=== PATIENT | male | born 1985 | race Caucasian/White ===

== ENCOUNTER 2017-07-11 16:17 | Emergency (ER) | payer BC, OTHER ==
--- NOTE | 2017-07-11 16:22 | PDOC ---
Rapid Medical Evaluation Chief Complaint: Back Pain Time Seen by Provider: 07/11/17 16:20 Medical Evaluation: 07/11/17 16:20 Healthy 32 year old male with sudden lower back pain after bending down this morning. No LE weakness/numbness, no bladder or bowel incontinence. No relief from Advil 1pm. -To FT for further evaluation
[2017-07-11 16:24] VITALS: BP 120/84; PULSE 78; TEMP 98; BMI 28.1
[2017-07-11] MEDS ORDERED: KETOROLAC TROMETHAMINE 60 MG/2 ML VIAL IM ONE (17:20)
--- NOTE | 2017-07-11 17:20 | PDOC ---
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 Woke up this morning with acute onset of exquisite low back pain. States his mid to lower waistline, some radiation through both buttocks. Denies numbness or tingling to feet. No problems with bowel or bladder. Took some Advil, and use some BenGay for some minimal resolved. No history of back injury or disc herniation. 07/11/17 17:25 Occurred: reports: this morning Severity: reports: moderate Pain Location: reports: back Method of Injury: Yes: unknown Modifying Factors: improves with: None Associated Symptoms (Fall): denies symptoms Past History - Travel Traveled outside of the country in the last 30 days: No Close contact w/someone who was outside of country & ill: No - Past Medical History Allergies/Adverse Reactions: Allergies Allergy/AdvReac Type Severity Reaction Status Date / Time No Known Allergies Allergy Verified 07/11/17 16:24 Home Medications: Ambulatory Orders Cyclobenzaprine HCl 10 mg PO Q8H PRN #14 tablet 07/11/17 COPD: No - Suicide/Smoking/Psychosocial Hx Smoking History: Never smoked Information on smoking cessation initiated: No Hx Alcohol Use: No Drug/Substance Use Hx: No Substance Use Type: None Review of Systems - Review of Systems Able to Perform ROS?: Yes Is the patient limited Luxembourger proficient: Yes Constitutional: Yes: Symptoms Reported, See HPI HEENTM: No: Symptoms Reported Respiratory: No: Symptoms reported ABD/GI: No: Symptoms Reported Musculoskeletal: Yes: Symptoms Reported, See HPI, Back Pain, Muscle Pain Integumentary: No: Symptoms Reported All Other Systems: Reviewed and Negative *Physical Exam - Vital Signs Last Vital Signs Temp Pulse Resp BP Pulse Ox 98 F 78 17 120/84 99 07/11/17 16:21 07/11/17 16:21 07/11/17 16:21 07/11/17 16:21 07/11/17 16:21 - Physical Exam General Appearance: Yes: Nourished, Appropriately Dressed, Apparent Distress, Moderate Distress HEENT: positive: BRIE, Normal ENT Inspection, TMs Normal, Pharynx Normal Neck: positive: Supple. negative: Tender Respiratory/Chest: positive: Lungs Clear, Normal Breath Sounds Gastrointestinal/Abdominal: positive: Soft. negative: Tender Musculoskeletal: positive: Normal Inspection, Decreased Range of Motion, Muscle Spasm (spasm detected at paravertebral spinous muscles bilaterally worse on the right than the left at approximately L1-3. Able to bend only to approximately 20 and has difficulty of resuming standing position due to the spasm. Vascular intact to feet). 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 07/11/17 20:43 patient much improved after Percocet tablets, able to sit transfer self to wheelchair and to home. We will continue regime of cyclobenzaprine and NSAIDs. *DC/Admit/Observation/Transfer Diagnosis at time of Disposition: Low back strain Qualifiers: Encounter type: initial encounter Qualified Code(s): S39.012A - Strain of muscle, fascia and tendon of lower back, initial encounter - Discharge Dispostion Disposition: HOME Condition at time of disposition: Stable Admit: No - Prescriptions Prescriptions: Cyclobenzaprine HCl 10 mg PO Q8H PRN #14 tablet PRN Reason: spasm - Referrals Referrals: Wilman Fulton [Primary Care Provider] - - Patient Instructions Printed Discharge Instructions: DI for Back Strain or Sprain Additional Instructions: Rest, no heavy lifting or exercise until pain is resolved Hot soaks to neck and low back as often as possible/hot showers or Jacuzzis No massage or therapy until spasm is gone Continue ibuprofen 2-200 mg tablets every 6 hours for the next 3 days then as needed for pain and swelling Cyclobenzaprine 1-10mg every 8 hours as needed for spasm If not significant improvement within 24 hours with medication and rest regime, followup with private physician for change in medications and /or therapy. - Post Discharge Activity Forms/Work/School Notes: Back to Work
[2017-07-11] MEDS ORDERED: KETOROLAC TROMETHAMINE 60 MG/2 ML VIAL ONE (17:21)
== END 2017-07-11 18:40 | disposition home or self-care (01) ==
LOC: JERFT 16:17
PROC: 3E0233Z Introduction of Anti-inflammatory into Muscle, Percutaneous Approach (ICD-10-PCS; principal; 2017-07-11)
DX: S39.012A Strain of muscle, fascia and tendon of lower back, initial encounter (principal); X50.0XXA Overexertion from strenuous movement or load, initial encounter; Y93.89 Activity, other specified; Y92.512 Supermarket, store or market as the place of occurrence of the external cause; Y99.0 Civilian activity done for income or pay
CPT/HCPCS: 99281-25

== ENCOUNTER 2018-12-27 10:03 | Emergency (ER) | payer BC, OTHER ==
[2018-12-27 10:10] VITALS: BP 125/71; PULSE 87; TEMP 98.6; BMI 28.1
[2018-12-27] MEDS ORDERED: ACETAMINOPHEN 1000 MG/100 ML VIAL (NON FORMULARY) IVPB ONE (11:09)
[2018-12-27] MEDS ORDERED: SODIUM CHLORIDE 1,000 ML IV STA (11:09)
--- NOTE | 2018-12-27 11:09 | PDOC ---
History of Present Illness - General Chief Complaint: Shortness of Breath Stated Complaint: HEADACHE/DIFF BREATHING Time Seen by Provider: 12/27/18 10:55 History Source: Patient Exam Limitations: No Limitations Past History - Travel Traveled outside of the country in the last 30 days: No Close contact w/someone who was outside of country & ill: No - Past Medical History Allergies/Adverse Reactions: Allergies Allergy/AdvReac Type Severity Reaction Status Date / Time No Known Allergies Allergy Verified 12/27/18 10:10 Home Medications: Ambulatory Orders Cyclobenzaprine HCl 10 mg PO Q8H PRN #14 tablet 07/11/17 COPD: No - Suicide/Smoking/Psychosocial Hx Smoking History: Never smoked Hx Alcohol Use: No Drug/Substance Use Hx: No Substance Use Type: None Review of Systems - Review of Systems Able to Perform ROS?: Yes Comments:: 12/27/18 15:47 CONSTITUTIONAL: Present: generalized weakness Absent: fever, chills, diaphoresis, malaise, loss of appetite HEENT: Absent: rhinorrhea, nasal congestion, throat pain, throat swelling, difficulty swallowing, mouth swelling, ear pain, eye pain, visual Changes CARDIOVASCULAR: Absent: chest pain, loss of consciousness, palpitations, irregular heart rate, peripheral edema RESPIRATORY: Present: shortness of breath, cough Absent: dyspnea with exertion, orthopnea, wheezing, stridor, hemoptysis GASTROINTESTINAL: Absent: abdominal pain, abdominal distension, nausea, vomiting, diarrhea, constipation, melena, hematochezia GENITOURINARY: Absent: dysuria, frequency, urgency, hesitancy, hematuria, flank pain, genital pain MUSCULOSKELETAL: Absent: myalgia, arthralgia, joint swelling SKIN: Absent: rash, itching, pallor HEMATOLOGIC/IMMUNOLOGIC: Absent: easy bleeding, easy bruising, lymphadenopathy, frequent infections ENDOCRINE: Absent: unexplained weight gain, unexplained weight loss, heat intolerance, cold intolerance NEUROLOGIC: Present: headache Absent: focal weakness or paresthesias, dizziness, unsteady gait, seizure, mental status changes, bladder or bowel incontinence PSYCHIATRIC: Absent: anxiety, depression, suicidal or homicidal ideation, hallucinations. Is the patient limited Liberian proficient: No *Physical Exam - Vital Signs Last Vital Signs Temp Pulse Resp BP Pulse Ox 98.6 F 87 18 125/71 99 12/27/18 10:08 12/27/18 10:08 12/27/18 10:08 12/27/18 10:08 12/27/18 10:08 - Physical Exam Comments: 12/27/18 15:48 GENERAL: Well developed, well nourished. Awake and alert. No acute distress. HEENT: Normocephalic, atraumatic. PERRLA, EOMI. No conjunctival pallor. Sclera are non- icteric. Moist mucous membranes. Oropharynx is clear. NECK: Supple. Full ROM. No JVD. Carotid pulses 2+ and symmetric, without bruits. No thyromegaly. No lymphadenopathy. CARDIOVASCULAR: Regular rate and rhythm. No murmurs, rubs, or gallops. Distal pulses are 2+ and symmetric. PULMONARY: No evidence of respiratory distress. Lungs clear to auscultation bilaterally. No wheezing, rales or rhonchi. ABDOMINAL: Soft. Non-tender. Non-distended. No rebound or guarding. No organomegaly. Normoactive bowel sounds. MUSCULOSKELETAL Normal range of motion at all joints. No bony deformities or tenderness. No CVA tenderness. EXTREMITIES: No cyanosis. No clubbing. No edema. No calf tenderness. SKIN: Warm and dry. Normal capillary refill. No rashes. No jaundice. NEUROLOGICAL: Alert, awake, appropriate. Cranial nerves 2-12 intact. No deficits to light touch and temperature in face, upper extremities and lower extremities. No motor deficits in the in face, upper extremities and lower extremities. Normoreflexic in the upper and lower extremities. Normal speech. Toes are down- going bilaterally. Gait is normal without ataxia. PSYCHIATRIC: Cooperative. Good eye contact. Appropriate mood and affect. ED Treatment Course - LABORATORY CBC & Chemistry Diagram: 12/27/18 11:22 12/27/18 11:22 Medical Decision Making - Medical Decision Making 12/27/18 15:49 The patient is a 33 y/o M with no PMH who presents to the ER for one day of headache, generalized weakness and cough. Pt feels like it is hard to take a deep breath. No recent travel. He states he has a dry cough and has an associated headache with the coughing. He has not tried any medication for his symptoms. Denies fevers ,chills, sore throat, ear ache, chest pain, n/v/d. A/P: URI Lungs CTAB, (-) w/r/r Pt is neurologically intact with no focal findings Basic labs, fluids, ofirmev ordered No leukocytosis. Elevated monocytes consistent with viral illness EKG: rate 54 BPM NSR. Normal intervals and axis. No acute ST-T wave changes Pt reports feeling much better after meds, requesting dc Suspect a viral illness DC home with PCP follow up I discussed the physical exam findings, ancillary test results and final diagnoses with the patient. I answered all of the patient's questions. The patient was satisfied with the care received and felt comfortable with the discharge plan and treatment plan. The Patient agrees to follow up with the primary care physician/specialist within 24-72 hours. Return precautions were given. *DC/Admit/Observation/Transfer Diagnosis at time of Disposition: URI (upper respiratory infection) Qualifiers: URI type: unspecified viral URI Qualified Code(s): J06.9 - Acute upper respiratory infection, unspecified - Discharge Dispostion Disposition: HOME Condition at time of disposition: Stable Decision to Admit order: No - Referrals Referrals: Wilman Fulton [Primary Care Provider] - - Patient Instructions Printed Discharge Instructions: DI for Viral Upper Respiratory Infection -- Adult Additional Instructions: You have an upper respiratory infection, or the common cold. Your lab tests were normal Please take Motrin 800 mg every 8 hours as needed for pain not to exceed 3000 mg a day. Drink plenty of fluids. Cough drops and warm tea may help your symptoms as well. Please follow up with her primary care doctor this week. Return to the emergency department if you have difficulty breathing, shortness of breath, worsening pain, nausea, vomiting or if you have any changes in your symptoms. - Post Discharge Activity Forms/Work/School Notes: Back to Work
[2018-12-27] MEDS ORDERED: ACETAMINOPHEN INJECTION 100 ML IVPB ONE (11:16)
[2018-12-27 11:30] LABS: BASO % 0.4 % (0-2.0); HEMATOCRIT 44.6 % (35.4-49); LYMPH % 40.5 % (8-40); MCH 28.9 pg (25.7-33.7); MCHC 33.6 g/dl (32.0-35.9); MEAN CELL VOLUME 86.2 fl (80-96); MEAN PLT VOLUME 9.3 fl (7.5-11.1); MONO % 11.7 % (3.8-10.2); NEUT % 45.4 % (42.8-82.8); PLATELET COUNT 144 K/MM3 (134-434); RBC 5.18 M/mm3 (4.00-5.60); RDW 13.2 % (11.9-15.9); WHITE BLOOD COUNT 3.9 K/mm3 (4.0-10.0)
[2018-12-27 12:05] LABS: BILIRUBIN,TOTAL 0.2 mg/dL (0.2-1); BLOOD UREA NITROGEN 20.2 mg/dL (7-18); CREATININE 0.8 mg/dL (0.55-1.3); POTASSIUM 4.2 mmol/L (3.5-5.1)
--- NOTE | 2018-12-28 09:38 | EKG ---
Test Reason : Blood Pressure : / mmHG Vent. Rate : 054 BPM Atrial Rate : 054 BPM P-R Int : 140 ms QRS Dur : 082 ms QT Int : 426 ms P-R-T Axes : 051 042 045 degrees QTc Int : 403 ms SINUS BRADYCARDIA OTHERWISE NORMAL ECG WHEN COMPARED WITH ECG OF 08-MAR-2008 09:40, NO SIGNIFICANT CHANGE WAS FOUND Confirmed by PAWEL ELLINGTON MD ([id number]) on 12/28/2018 9:38:20 AM Referred By: Confirmed By:PAWEL ELLINGTON MD
== END 2018-12-27 14:10 | disposition home or self-care (01) ==
LOC: JER 10:03
PROC: 3E033NZ Introduction of Analgesics, Hypnotics, Sedatives into Peripheral Vein, Percutaneous Approach (ICD-10-PCS; principal; 2018-12-27)
DX: J06.9 Acute upper respiratory infection, unspecified (principal); B97.89 Other viral agents as the cause of diseases classified elsewhere
CPT/HCPCS: 36415; 71046-TC-FY; 80053; 85025; 93005; 93010; 99283-25; J0131; J7030

== ENCOUNTER 2019-05-18 09:36 | Emergency (ER) | payer BC ==
[2019-05-18 09:47] VITALS: BMI 28.1
[2019-05-18] MEDS ORDERED: ACETAMINOPHEN 1000 MG/100 ML VIAL (NON FORMULARY) IVPB ONE (10:17)
[2019-05-18] MEDS ORDERED: SODIUM CHLORIDE 1,000 ML IV STA (10:17)
--- NOTE | 2019-05-18 10:25 | PDOC ---
History of Present Illness - General History Source: Patient Exam Limitations: Clinical Condition - History of Present Illness Initial Comments: 05/18/19 10:21 Patient with no significant past medical history present with complaint of 4- day history of nasal congestion, head, diarrhea, runny nose and intermittent chest tightness. Patient report no chest tightness today but having headache which feels like pressure in the head. Denies nausea, vomiting, dizziness, blurry vision or change in vision. Denies chest pain, palpitation, numbness or tingling sensation. Denies abdominal pains. Patient reported having 6 diarrhea episodes yesterday and 2 today. Patient reported malaise. Patient reported he was diagnosed with flu over 2 weeks ago. Denies recent travel or sick contact. Denies blood or mucus in stool. Patient has not taken anything for symptoms Is this a multiple visit Asthma Patient?: No Timing/Duration: other (4 days) <Macario Degroot - Last Filed: 05/18/19 11:41> <Juan David Díaz - Last Filed: 05/18/19 16:25> - General Chief Complaint: Headache Stated Complaint: HEADACHE/WEAKNESS Time Seen by Provider: 05/18/19 10:09 Past History - Past Medical History COPD: No Other medical history: DENIES - Immunization History Immunization Up to Date: Yes - Psycho Social/Smoking Cessation Hx Smoking History: Never smoked Hx Alcohol Use: No Drug/Substance Use Hx: No Substance Use Type: None <Macario Degroot - Last Filed: 05/18/19 11:41> <Juan David Díaz - Last Filed: 05/18/19 16:25> - Past Medical History Allergies/Adverse Reactions: Allergies Allergy/AdvReac Type Severity Reaction Status Date / Time No Known Allergies Allergy Verified 05/18/19 09:42 Home Medications: Ambulatory Orders Ipratropium [place] 2 spray NS BID PRN 5 Days #1 spray 05/18/19 Methylprednisolone [Medrol Dose Luiz] 4 mg PO ASDIR #21 tablet 05/18/19 Montelukast Na [Singulair -] 10 mg PO DAILY #7 tablet 05/18/19 Review of Systems - Review of Systems Able to Perform ROS?: Yes Is the patient limited Indonesian proficient: No Constitutional: Yes: Malaise. No: Chills, Fever HEENTM: Yes: Symptoms Reported, See HPI, Nose Congestion. No: Eye Pain, Blurred Vision, Tearing, Recent change in vision, Double Vision, Cataracts, Ear Pain, Ocular Prothesis, Ear Discharge, Nose Pain, Tinnitus, Nose Bleeding, Hearing Loss, Throat Pain, Throat Swelling, Mouth Pain, Dental Problems, Difficulty Swallowing, Mouth Swelling, Other Respiratory: No: Symptoms reported, See HPI, Cough, Orthopnea, Shortness of Breath, SOB with Exertion, SOB at Rest, Stridor, Wheezing, Productive cough, Hemoptysis, Other Cardiac (ROS): No: Symptoms Reported, See HPI, Chest Pain, Edema, Irregular Heart Rate, Lightheadedness, Palpitations, Syncope, Chest Tightness, Other ABD/GI: Yes: Symptoms Reported, See HPI, Diarrhea. No: Abd. Pain w/ defecation , Blood Streaked Bowels, Constipated, Difficulty Swallowing, Nausea, Poor Appetite, Rectal Bleeding, Vomiting, Indigestion, Abdominal cramping, Tarry Stools : No: Symptoms Reported, Burning, Discharge, Frequency, Urgency Neurological: Yes: Symptoms reported, See HPI, Headache. No: Tremors, Weakness , Unsteady Gait, Dizziness All Other Systems: Reviewed and Negative <Macario Degroot - Last Filed: 05/18/19 11:41> *Physical Exam - Vital Signs Last Vital Signs Temp Pulse Resp BP Pulse Ox 99.8 F H 120 H 18 113/75 100 05/18/19 09:44 05/18/19 09:44 05/18/19 09:44 05/18/19 09:44 05/18/19 09:44 - Physical Exam 05/18/19 10:24 GENERAL: Well developed, well nourished. Awake and alert. No acute distress. HEENT: Normocephalic, atraumatic. PERRLA, EOMI. No conjunctival pallor. Sclera are non-icteric. Moist mucous membranes. Oropharynx is clear. NECK: Supple. Full ROM. CARDIOVASCULAR: Regular rate and rhythm. No murmurs, rubs, or gallops. Distal pulses are 2+ and symmetric. PULMONARY: No evidence of respiratory distress. Lungs clear to auscultation bilaterally. No wheezing, rales or rhonchi. ABDOMINAL: Soft. Non-tender. Non-distended. No rebound or guarding. No organomegaly. Normoactive bowel sounds. MUSCULOSKELETAL Normal range of motion at all joints. SKIN: Warm and dry. Normal capillary refill. No rashes. No jaundice. No cyanosis NEUROLOGICAL: Alert, awake, appropriate. Gait is normal without ataxia. PSYCHIATRIC: Cooperative. Good eye contact. Appropriate mood General Appearance: Yes: Nourished, Appropriately Dressed. No: Apparent Distress <Macario Degroot - Last Filed: 05/18/19 11:41> - Vital Signs Last Vital Signs Temp Pulse Resp BP Pulse Ox 98.9 F 87 18 94/55 L 98 05/18/19 11:24 05/18/19 11:24 05/18/19 09:44 05/18/19 11:24 05/18/19 11:24 <Juan David Díaz - Last Filed: 05/18/19 16:25> ED Treatment Course - LABORATORY CBC & Chemistry Diagram: 05/18/19 10:32 05/18/19 10:32 <Macario Degroot - Last Filed: 05/18/19 11:41> - LABORATORY CBC & Chemistry Diagram: 05/18/19 10:32 05/18/19 10:32 - ADDITIONAL ORDERS Additional order review: Laboratory Results 05/18/19 10:32 Sodium 139 Potassium 4.0 Chloride 106 Carbon Dioxide 26 Anion Gap 7 L BUN 12.2 Creatinine 0.8 Est GFR (CKD-EPI)AfAm 136.03 Est GFR (CKD-EPI)NonAf 117.37 Random Glucose 101 Calcium 9.0 Total Bilirubin 0.4 AST 25 ALT 41 Alkaline Phosphatase 61 Total Protein 7.0 Albumin 3.7 05/18/19 10:32 RBC 5.00 MCV 85.5 MCHC 34.4 RDW 13.7 MPV 9.3 Neutrophils % 73.0 D Lymphocytes % 13.6 D Monocytes % 13.0 H Eosinophils % 0.2 D Basophils % 0.2 - Medications Given in the ED: ED Medications Discontinued Medications Generic Name Dose Route Start Last Admin Trade Name Freq PRN Reason Stop Dose Admin Acetaminophen 1,000 mg 05/18/19 10:17 05/18/19 10:35 Ofirmev Injection - IVPB 05/18/19 10:18 1,000 mg ONCE ONE Administration Sodium Chloride 1,000 mls @ 1,000 mls/hr 05/18/19 10:17 05/18/19 10:30 Normal Saline - IV 05/18/19 11:16 1,000 mls/hr ASDIR STA Administration <Juan David Díaz - Last Filed: 05/18/19 16:25> Medical Decision Making - Medical Decision Making 05/18/19 10:22 Patient with no significant past medical history present with complaint of 4- day history of nasal congestion, head, diarrhea, runny nose and intermittent chest tightness. Patient report no chest tightness today but having headache which feels like pressure in the head. Denies nausea, vomiting, dizziness, blurry vision or change in vision. Denies chest pain, palpitation, numbness or tingling sensation. Denies abdominal pains. Patient reported having 6 diarrhea episodes yesterday and 2 today. Patient reported malaise. Patient reported he was diagnosed with flu over 2 weeks ago. Denies recent travel or sick contact. Denies blood or mucus in stool. Patient has not taken anything for symptoms Clinical exam unremarkable with normal neuro exam. Abdominal nontender. Lungs clear to auscultation bilateral and normal cardio exam. Patient in no acute distress and ambulating with normal gait. Patient symptoms likely viral URI with viral gastroenteritis. Headache is likely caused by sinus headaches. Will do basic labs to rule out any acute infection. Tylenol 1 g IV ordered for headache. IV hydration of 1 L normal saline ordered. Treat based on lab results 05/18/19 11:31 CBC and chemistry lab unremarkable. Patient reported improvement in headache after Tylenol and IV hydration. Patient symptoms likely caused by sinus headache and stable for outpatient management on Atrovent nasal spray and Singulair for nasal congestion with advised to increase fluid intake and follow- up with primary care. Strict follow-up instruction given to patient including worsening headache, fevers and dizziness and advised patient to come back to emergency room if new symptoms <Macario Degroot - Last Filed: 05/18/19 11:41> - Medical Decision Making 05/18/19 16:25 I reviewed the case of the mid-level practitioner and was available for consultation while in the emergency department <Juan David Díaz - Last Filed: 05/18/19 16:25> Discharge - Discharge Information Problems reviewed: Yes - Admission No <Macario Degroot - Last Filed: 05/18/19 11:41> <Juan David Díaz - Last Filed: 05/18/19 16:25> - Discharge Information Clinical Impression/Diagnosis: Sinus headache, Viral syndrome URI (upper respiratory infection) Qualifiers: URI type: unspecified viral URI Qualified Code(s): J06.9 - Acute upper respiratory infection, unspecified Condition: Improved Disposition: HOME - Additional Discharge Information Prescriptions: Ipratropium [place] 2 spray NS BID PRN 5 Days #1 spray PRN Reason: nasal congestion Methylprednisolone [Medrol Dose Luiz] 4 mg PO ASDIR #21 tablet Montelukast Na [Singulair -] 10 mg PO DAILY #7 tablet - Follow up/Referral Referrals: Wilman Fulton [Primary Care Provider] - - Patient Discharge Instructions Patient Printed Discharge Instructions: DI for Sinusitis, DI for Sinus Headache Additional Instructions: Your blood work was normal. Your symptoms is likely headache from sinus congestion. Continue with Tylenol as needed for headache. Take prescribed medication as prescribed for sinus headaches. Increase fluid intake. Follow- up with your primary care. Come back to emergency room if worsening headache, blurry vision, fevers with nausea vomiting. - Post Discharge Activity Work/Back to School Note: Back to Work
[2019-05-18 10:45] LABS: BASO % 0.2 % (0-2.0); EOS % 0.2 % (0-4.5); HEMATOCRIT 42.7 % (35.4-49); HEMOGLOBIN 14.7 GM/dL (11.7-16.9); LYMPH % 13.6 % (8-40); MCH 29.4 pg (25.7-33.7); MCHC 34.4 g/dl (32.0-35.9); MEAN CELL VOLUME 85.5 fl (80-96); MEAN PLT VOLUME 9.3 fl (7.5-11.1); PLATELET COUNT 144 K/MM3 (134-434); RDW 13.7 % (11.9-15.9); WHITE BLOOD COUNT 6.4 K/mm3 (4.0-10.0)
[2019-05-18 11:17] LABS: ALBUMIN 3.7 g/dl (3.4-5.0); BILIRUBIN,TOTAL 0.4 mg/dL (0.2-1); BLOOD UREA NITROGEN 12.2 mg/dL (7-18); CREATININE 0.8 mg/dL (0.55-1.3)
[2019-05-18 11:26] VITALS: BP 94/55; PULSE 87; TEMP 98.9
== END 2019-05-18 11:37 | disposition home or self-care (01) ==
LOC: JER 09:36 → SUPCPDRO 09:36 → JER 11:37
PROC: 3E0337Z Introduction of Electrolytic and Water Balance Substance into Peripheral Vein, Percutaneous Approach (ICD-10-PCS; principal; 2019-05-18)
PROC: 3E033NZ Introduction of Analgesics, Hypnotics, Sedatives into Peripheral Vein, Percutaneous Approach (ICD-10-PCS; 2019-05-18)
DX: J06.9 Acute upper respiratory infection, unspecified (principal); B97.89 Other viral agents as the cause of diseases classified elsewhere; J32.9 Chronic sinusitis, unspecified
CPT/HCPCS: 36415; 80053; 85025; 99283-25; J0131; J7030